=== PATIENT | male | born 1945 | race Caucasian/White ===

== ENCOUNTER 2018-08-28 15:56 | Inpatient (IN) | payer OTHER, BC ==
[~2018-08-28] VITALS: Ht 152.4 cm; Wt 86.3 kg
[2018-08-28 16:34] VITALS: BP 111/61
--- NOTE | 2018-08-28 18:42 | NUR ---
ASSUMED CARE OF PT AT APPROX 1615. PT ARRIVED ON UNIT VIA EMS TRANSPORT FROM [facility]. PT HAS A HX OF HEMMORAGHAIC STROKE (FELIX 2019) AND HAS IN BEEN SWITCHING BETWEEN VENT, BIPAP, AND NC SINCE THE EVENT. CODY AT [facility] REPORTED THAT THIS MORNING THE PT SPIKED A FEVER OF 101, HAD INCREASED BP OF 180/110, AND BECAME TACHYCARDIC IN THE 130s. THE FAMILY ALSO REPORTS THAT THE PATIENT HAS BEEN LESS ORIENTATED, UNABLE TO TRACK WITH EYES AND INCREASINGLY LETHARGIC, THE LAST DAY OR TWO.
[2018-08-28 20:07] LABS: PCO2 57.9 mmHg (35.0-45.0); PO2 128.2 mmHg (80.0-100.0); pH 7.435 (7.360-7.450); sO2 98.6 % (92.0-98.0)
[2018-08-28 20:16] VITALS: BP 96/41
[2018-08-29 00:07] LABS: HEMATOCRIT 26.6 % (42.0-52.0); HEMOGLOBIN 8.4 gm/dL (14.0-18.0); MCH 27.2 pg (26.0-34.0); MCHC 31.5 g/dL (28.0-37.0); MCV 86.2 fL (80.0-100.0); PLATELET COUNT 368 thou/uL (150-400); RBC 3.09 mil/uL (4.50-6.00); RDW 15.5 % (10.5-14.5); WBC 20.6 thou/uL (4.0-11.0)
[2018-08-29 00:19] VITALS: BP 132/65
[2018-08-29 00:28] LABS: ALBUMIN 1.5 g/dL (3.4-5.0); CALCIUM 8.8 mg/dL (8.5-10.1); CREATININE 0.6 mg/dL (0.7-1.3); POTASSIUM 3.3 mmol/L (3.5-5.1); TOTAL BILIRUBIN 0.2 mg/dL (<0.1-1.0); TOTAL PROTEIN 6.3 g/dL (6.4-8.2)
[2018-08-29 00:47] LABS: ABSOLUTE NEUTROPHILS 17.9 thou/uL (1.4-8.2); METAMYELOCYTES 1 %
[2018-08-29 00:48] LABS: ANISOCYTOSIS 1+; PLATELET ESTIMATE NORMAL; POIKILOCYTOSIS 1+
[2018-08-29] MEDS ORDERED: IPRAT-ALBUT 0.5-3 ML IH (01:28)
[2018-08-29] MEDS ORDERED: ASPIR 8181 MG PER TUBE (01:29)
[2018-08-29] MEDS ORDERED: ARTIFICIAL TEA1 EACH OPHTHALMIC (01:29)
[2018-08-29] MEDS ORDERED: LIORESAL 10 MG10 MG PER TUBE ×3 (01:30→01:44)
[2018-08-29] MEDS ORDERED: PERIDEX15 ML MUCOUS MEM (01:32)
[2018-08-29] MEDS ORDERED: CARDURA4 MG PER TUBE (01:34)
[2018-08-29] MEDS ORDERED: LASIX 20 MG TAB20 MG PER TUBE (01:35)
[2018-08-29] MEDS ORDERED: VIMPAT200 MG PER TUBE (01:35)
[2018-08-29] MEDS ORDERED: PREVACID30 MG PER TUBE (01:36)
[2018-08-29] MEDS ORDERED: KEPPRA1000 MG PER TUBE ×2 (01:38→01:40)
[2018-08-29] MEDS ORDERED: LISINOPRIL40 MG PER TUBE (01:40)
[2018-08-29] MEDS ORDERED: PROPRANOLOL 1010 MG PER TUBE (01:41)
[2018-08-29] MEDS ORDERED: VALPROIC A500 MG/10 PER TUBE (01:42)
[2018-08-29] MEDS ORDERED: DEXTROSE 50%-WA50 ML IV (01:48)
[2018-08-29] MEDS ORDERED: GLUCAGON EMERGEN1 MG INJECTION (01:49)
[2018-08-29] MEDS ORDERED: GLUCOSE GEL38 GM PO (01:50)
[2018-08-29] MEDS ORDERED: GLUCOSE4 GM PO (01:51)
[2018-08-29] MEDS ORDERED: ATIVAN0.5 MG PER TUBE (01:52)
[2018-08-29] MEDS ORDERED: PROPRANOLOL 1010 MG PO (01:54)
[2018-08-29 04:00] VITALS: BP 129/54
--- NOTE | 2018-08-29 04:39 | NUR ---
ASSUMED CARE OF PT. AT 1900. ADMISSIONS COMPLETED. PT. IS MORE ALERT THROUGHOUT THE SHIFT. WILL SOMETIMES TRACK AND CAN SQUEEZE HANDS AND WIGGLE TOES, BUT IS VERY WEAK. PT. DOES NOT LOOK IN PAIN. PT. AFEBRILE AND VSS. PT. TOLERATES TURNS, SUCTIONING, AND ORAL CARE. MEDICATIONS ORDERED PER DOCTOR REQUEST, TUBE FEEDINGS NOT STARTED, WILL PUT IN DIETARY CONSULT. AWAITING CT RESULTS. PT. IS PROGRESSING TOWARDS GOALS, WILL CONTINUE TO MONITOR.
[2018-08-29 08:25] VITALS: BP 115/61
--- NOTE | 2018-08-29 09:49 | NUR ---
RD recommends Vital AF 1.2 at goal rate of 65 ml/hr with 150 ml water flushes q 4 hrs
[2018-08-29 10:33] LABS: URINE BILIRUBIN NEGATIVE (Negative); URINE BLOOD 3+ (Negative); URINE CLARITY CLEAR; URINE COLOR YELLOW; URINE GLUCOSE-RANDOM* NEGATIVE (Negative); URINE KETONES TRACE (Negative); URINE PROTEIN (DIPSTICK) 1+ (Negative); URINE SPECIFIC GRAVITY 1.025 (1.005-1.035)
[2018-08-29 10:34] LABS: URINE LEUKOCYTES-REFLEX 1+ (Negative); URINE NITRITE-REFLEX POSITIVE (Negative)
[2018-08-29 10:50] LABS: BACTERIA-REFLEX >30 Many /HPF (None Seen); CASTS None Seen /LPF (None Seen); CRYSTALS None Seen /LPF (None Seen); SQUAMOUS 0-3 Few /LPF (0-3); URINE RBC 3-10 Few /HPF (0-2)
--- NOTE | 2018-08-29 11:04 | H ---
[facility] [place] [address] HISTORY AND PHYSICAL Name: YAA MANRIQUEZ Room #: 361-P ADM IN M.R.#: [id number] Admission: 08/28/18 ������������������ Attend Phys: Jody Brown Discharge: ������������������ Date of : 41 Report #: [id number] THIS REPORT FOR: //name// CC: Karl Alvarez DATE OF SERVICE: 08/28/2018 CHIEF COMPLAINT: Shortness of breath and fever. HISTORY OF PRESENT ILLNESS: The patient is a 72-year-old gentleman who was transferred from [facility] for evaluation of chronic respiratory failure and ventilator weaning possibility, and a recent fever. His history began in April of this year when he developed a subarachnoid hemorrhage felt to be due to AV malformation and hemorrhage, developed significant hydrocephalus. He underwent a craniotomy and subsequently developed respiratory failure and significant neurologic injury. Since that time, he has been confined to the ventilator with a tracheostomy tube and a PEG tube for feeding. His neurologic status really has not improved significantly and he has been bedbound and minimally responsive. After speaking to the LTAC facility, he has attempted ventilator weaning 3 times and failed due to hypoxia and poor airway clearance, felt to be related to his underlying poor neurologic status. In recent days or a week, he will mainly blink his eyes and briefly look around the room, but there is no two way interaction at this point. He also had a complication and belief of red man syndrome and a reaction to vancomycin, which has left him with significant erythema of the skin throughout. PAST MEDICAL HISTORY: Psoriasis and hypertension. PAST SURGICAL HISTORY: Tracheostomy, PEG tube, craniotomy, and IVC filter placement. FAMILY HISTORY: Unknown. SOCIAL HISTORY: Unknown. ALLERGIES: VANCOMYCIN and DILANTIN. MEDICATIONS: Albuterol, aspirin, baclofen, Cardura, Lasix, Vimpat, Keppra, Prinivil, omeprazole, propranolol, and Depakote. REVIEW OF SYSTEMS: He is unable to give review. OBJECTIVE: VITAL SIGNS: T-max was 38.1, currently at 36.8; pulse 76; respirations 20; and blood pressure 115/61. [facility] [address] [place] [address] HISTORY AND PHYSICAL Name: YAA MANRIQUEZ Room #: 361-P ADM IN M.R.#: [id number] Admission: 08/28/18 ������������������ Attend Phys: Jody Brown Discharge: ������������������ Date of : 43 Report #: [id number] GENERAL: He is asleep on the ventilator. He opens his eyes and blinks, but there is no purposeful interaction or tracking. HEAD AND NECK: Unremarkable. Trach in place. LUNGS: Clear anteriorly. HEART: Regular. ABDOMEN: Soft, normoactive bowel sounds. PEG tube in place. Guerra catheter in place. EXTREMITIES: He has rigidity in the arms, no edema. SKIN: He has a sort of a flat erythematous irritation with dry flaking skin throughout across the head, neck, chest, arms, lower legs. NEUROLOGIC: There are no purposeful movements in her actions. LABORATORY DATA: His white count was 20,000, hemoglobin 8.4. Potassium 3.3, otherwise chemistries unremarkable. Albumin 1.5. ABG noted. CT head shows postoperative changes, but no bleed or mass. ASSESSMENT: 1. Chronic hypoxic respiratory failure. 2. Ventilator dependence. 3. Tracheostomy dependent. 4. Fever. 5. Leukocytosis. 6. Severe protein-calorie malnutrition. 7. Anemia of chronic disease. 8. Hypertension. 9. IVC filter in place. 10. PEG tube in place. 11. Guerra catheter in place. 12. Subarachnoid hemorrhage with craniotomy in 04/2018. 13. 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 PLAN: At this point, he is admitted for medical evaluation to see if there is anything that we can treat, try to help him wean from the ventilator. From the neurologic standpoint, I do not believe there is anything we can do to improve his status. CT head shows no acute changes. I will ask for a Depakote level. I spoke with Dr. Tavares who tried discontinuing his anti-seizure medications and sent in his seizure and myoclonus resume so they were restarted. We will continue those for now. I will ask Neurology opinion, but I do not see if there is anything we can do in that regard. As far as recent fever that was documented 101 at the facility and 38.1 here Celsius, so we need to workup fever and treat with antibiotics. ID is consulted. I will ask Pulmonary to give second opinion on ventilator weaning attempts, but given his poor neurologic [address] [address] HISTORY AND PHYSICAL Name: YAA MANRIQUEZ Room #: 361-P ADM IN M.R.#: [id number] Admission: 08/28/18 ������������������ Attend Phys: Jody Brown Discharge: ������������������ Date of : 43 Report #: [id number] status. He may just need chronic ventilator care at this point and long-term care ventilator unit. ��������������������������������������������� <ELECTRONICALLY SIGNED> ���������������������������������������� By: Teto Alvarez MD ��������������������������������������������� 08/29/18 1104 [id number] [id number] Teto Alvarez MD /nt
--- NOTE | 2018-08-29 11:18 | NUR ---
met with at bedside. patient admits with fever, tachycardia. Patient admits from [facility]. He had a suarachoid hemorragekin April 2018 which caused resp failure. He is on vent, TF, eyes open. Sp with tenative plan to return to [facility]. reports they have attempted vent weaning. She reports they discussed [facility] which is not what she wants for patient. She reports from hospital stay she wants to take him home with care. She reports she has spoken with Edith at [facility] who has given her information regarding pvt dty at home. She is aware of home on vent with need for 24/7 care. Called and sp with Kymberly at [facility] who reports she would like for their [employer] to sp with regarding plan. Casemgt to followup with once discussion to determine if cont plan for home.
[2018-08-29 11:50] LABS: % SATURATION 8 % (20-39); IRON 15 ug/dL (65-175); TIBC 190 ug/dL (250-450)
[2018-08-29 12:11] VITALS: BP 121/56
--- NOTE | 2018-08-29 20:42 | NUR ---
Assumed care at 0700 this AM. Patient didn't follow commands today but would track with eyes and move extremities slightly on his own. O2 sats remained adequate today, but there was thick/mayberry sputum production all shift. IV antibiotics started. Tube feed started per orders today. Dietitian gave recommendation and Dr. Alvarez verbally approved the recommendation along with Q4H flushes. at bedside most of day and intermittently updated. Slow progress toward plan of care goals.
[2018-08-29 21:14] VITALS: BP 136/69
[2018-08-30 04:38] VITALS: BP 102/54
--- NOTE | 2018-08-30 05:11 | NUR ---
ASSUMED PT CARE AROUND 1900. NO VERBAL RESPONSE. WITHDRAWS TO PAINFUL STIMULI. O2 SATS STABLE ON VENT. ORAL CARE PROVIDED. WHOLE BODY RASH, DRY SKIN. CREAM APPLIED TO DRY SKIN. TF VIA PEG, TOLERATING WELL WITH MINIMAL RESIDUALS. Q2H TURN TO PREVENT FURTHER SKIN BREAKDOWN. VSS. RUBALCAVA TO DD. POSITIVE BLOOD CULTURE RESULTS CALLED TO DR ADITI PEÑA. FALL PRECAUTIONS IN PLACE. PT RESTED COMFORTABLY DURING THE NIGHT. NOT PROGRESSING WELL TOWARD POC GOALS. WILL CONTINUE TO MONITOR FURTHER.
[2018-08-30 05:49] LABS: HEMATOCRIT 27.7 % (42.0-52.0); HEMOGLOBIN 8.9 gm/dL (14.0-18.0); MCH 27.7 pg (26.0-34.0); MCHC 32.3 g/dL (28.0-37.0); MCV 85.8 fL (80.0-100.0); RBC 3.23 mil/uL (4.50-6.00); RDW 15.7 % (10.5-14.5); WBC 11.6 thou/uL (4.0-11.0)
[2018-08-30 05:59] LABS: CALCIUM 8.8 mg/dL (8.5-10.1); CREATININE 0.6 mg/dL (0.7-1.3); POTASSIUM 3.6 mmol/L (3.5-5.1)
[2018-08-30 07:55] VITALS: BP 95/44
[2018-08-30 11:45] VITALS: BP 97/53
--- NOTE | 2018-08-30 12:44 | HC ---
[facility] [place] [address] CONSULTATION Name: YAA MANRIQUEZ Room #: 361-P ADM IN M.R.#: [id number] Admission: 08/28/18 ������������������ Attend Phys: Jody Brown Discharge: ������������������ Date of : 43 Report #: [id number] THIS REPORT FOR: //name// CC: Karl Alvarez DATE OF SERVICE: 08/29/2018 INFECTIOUS DISEASE CONSULTATION REASON FOR CONSULTATION: I was asked to evaluate concerning fever in the setting of respiratory failure. HISTORY OF PRESENT ILLNESS: The patient is a 72-year-old known from his previous hospitalization at [facility]. 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 He underwent emergent craniotomy with extraventricular drain placement. He developed respiratory failure and has failed to wean from the ventilator since. In addition, he has had seizures, GI bleed from duodenal ulcer, DVT requiring an IVC filter, PEG tube placement. Had had a methicillin-susceptible Staph aureus pneumonia. He was treated with Dilantin for his seizures and developed a desquamating diffuse erythroderma. unclear whether it was due to Dilantin or vancomycin. He continues to have rash. On 07/14/2018, initially was weaned for a short period of time from the ventilator, ultimately was placed back on when he was diagnosed with metapneumovirus pseudomonas and Enterobacter pneumonia. He completed a prolonged course of IV antibiotic therapy. Last month, he finished Zosyn therapy and was off antibiotics for several weeks. Yesterday developed increased fever and respiratory compromise. He was readmitted at [facility] for further treatment. He has failed ventilatory weaning at [facility]. He has had no report of diarrhea. He has an indwelling Guerra catheter. He is receiving PEG tube feedings. Remains on FiO2 of 40%. No increased tracheal secretions. No change in his erythroderma. No new wounds. The patient unable to give any further details. He was placed on Zosyn following his transfer. Blood, urine, and sputum cultures have been obtained. ROS: 10 point review neg other than described above. PAST MEDICAL HISTORY: In addition to the above, he has psoriasis and hypertension. FAMILY HISTORY: Noncontributory. SOCIAL HISTORY: Noncontributory. [facility] [address] [place] [address] CONSULTATION Name: YAA MANRIQUEZ Room #: 361-P ADM IN M.R.#: [id number] Admission: 08/28/18 ������������������ Attend Phys: Jody Brown Discharge: ������������������ Date of : 43 Report #: [id number] ALLERGIES: DILANTIN, possibly VANCOMYCIN. MEDICATIONS: As noted on his APR, which were reviewed, now on zosyn. PHYSICAL EXAMINATION: VITAL SIGNS: Maximum temperature was 38 degrees, currently afebrile and hemodynamically stable. He had diffuse erythroderma with peeling skin. No other lesions noted. No palpable adenopathy. Eyes, without scleral icterus. Mouth without mucositis. Tracheostomy was unremarkable with no surrounding erythema or drainage. Neck was otherwise, supple. LUNGS: Coarse bilaterally, mostly in the bases. HEART: Regular, without murmur, gallop, or rub. ABDOMEN: Soft, did not appear tender and no hepatosplenomegaly or mass appreciated. PEG site was unremarkable with no drainage. External genitalia was edematous with no lesions or mass. He had indwelling Guerra catheter. RECTAL: Not performed. EXTREMITIES: With 1+ peripheral edema. He was able to move his extremities, but not to command. Unable to follow commands for cranial nerve evaluation. He was awake and able to follow with his eyes. LABORATORY STUDIES: Reviewed. Urinalysis with pyuria and bacteriuria. CT of the head with no acute change. Chest x-ray with bilateral infiltrates, mostly in the bases. IMPRESSION: 1. Febrile presentation with leukocytosis in the setting of respiratory failure and intracranial hemorrhage and acute neurologic injury. Considering pneumonia versus urinary tract infection is most likely cause of his decline. Oxygen requirements, however, have been stable. bacteremia from dermatitis concidered. 2. Diffuse erythroderma, underlying history of psoriasis and possible drug reaction. I would expect if Dilantin or vancomycin where the culprit, he would have cleared by now. 3. History of duodenal ulcer. 4. Deep venous thrombosis with IVC filter in place. 5. Seizure disorder. 6. Underlying chronic obstructive pulmonary disease. RECOMMENDATIONS: We will continue IV antibiotic therapy with Zosyn pending further culture results. We will follow his white count. Serial chest x-rays. [address] [address] CONSULTATION Name: YAA MANRIQUEZ Room #: 361-P ADM IN M.R.#: [id number] Admission: 08/28/18 ������������������ Attend Phys: Jody Brown Discharge: ������������������ Date of : 43 Report #: [id number] We will have Dermatology evaluate concerning persistent rash and any other treatment options. Neurologic evaluation to assist in prognosis and hopefully, be able to begin ventilatory weaning. Patient at risk for further complications. will continue care in cardiac monitoring unit for intensive therapy and observation. 60 min. ��������������������������������������������� <ELECTRONICALLY SIGNED> ���������������������������������������� By: Kee Tavares MD ��������������������������������������������� 08/30/18 1244 [id number] 0045 Kee Tavares MD /nt
--- NOTE | 2018-08-30 13:53 | HC ---
[facility] [place] [address] CONSULTATION Name: YAA MANRIQUEZ Room #: 361-P ADM IN M.R.#: [id number] Admission: 08/28/18 ������������������ Attend Phys: Jody Brown Discharge: ������������������ Date of : 43 Report #: [id number] THIS REPORT FOR: //name// CC: Karl Alvarez REFERRING PHYSICIAN: Dr. Teto Alvarez. REASON FOR REFERRAL: Weaning from the mechanical ventilator. HISTORY OF PRESENT ILLNESS: The patient is a 72-year-old gentleman who was admitted with dyspnea and fever. He has a history of chronic respiratory failure on ventilator. In 04/2018, the patient was admitted at for subarachnoid hemorrhage. The bleed was felt to be related to AV malformation. The patient also developed significant hydrocephalus. A craniotomy was performed. The patient has been on mechanical ventilation ever since the surgery. A tracheostomy was performed along with PEG tube. Neurologically, the patient developed seizure disorder, with weakness in all of his extremities. He was also on anticonvulsant therapy. The patient was then transferred [facility] where they specialize in neurologic patients on mechanical ventilation. According to the records, the patient was able to be weaned off the mechanical ventilation, Passy-Kinzers valve. He was placed on few liters of O2. He was doing fairly well where he developed pneumonia and was again placed on mechanical ventilation. Since then, the patient was transferred to [facility] for ongoing care and possible ventilator weaning. At [facility] the patient's weaning attempts at least 3 occasions failed due to hypoxia and poor clearance of airway secretions. Neurologically he remained same. The patient remains unable to move his extremities, opens his eyes. Recently, the patient developed febrile illness, for that reason he was transferred to the hospital for ongoing care. Family is also requesting whether the patient can be evaluated for ongoing weaning from the mechanical ventilation. PAST MEDICAL HISTORY: As mentioned above including hypertension, psoriasis. PAST SURGICAL HISTORY: As mentioned above including craniotomy, tracheostomy, PEG tube placement, IVC filter placement. ALLERGIES: VANCOMYCIN AND DILANTIN, REACTIONS NOT SPECIFIED. FAMILY HISTORY: Noncontributory. [facility] [address] [place] [address] CONSULTATION Name: YAA MANRIQUEZ Room #: 361-P [facility] IN M.R.#: [id number] Admission: 08/28/18 ������������������ Attend Phys: Jody Brown Discharge: ������������������ Date of : 43 Report #: [id number] SOCIAL HISTORY: No tobacco or alcohol use. He is . REVIEW OF SYSTEMS: Deferred as the patient is unable to provide answers. MEDICATIONS: Reviewed. He was on albuterol, aspirin, baclofen, Cardura, Lasix, Vimpat, Keppra, Prinivil, omeprazole, propranolol, Depakote. PHYSICAL EXAMINATION: GENERAL: His eyes are open, but does not follow commands. VITAL SIGNS: Temperature is 99 degrees Fahrenheit, temperature maximum was 106.0 degrees Fahrenheit, pulse is 84, respiratory rate is 20, blood pressure 120/56 mmHg, saturation 98%. HEENT: Normocephalic, atraumatic. NECK: Supple, without any lymphadenopathy or thyromegaly. Status post tracheostomy. CHEST: Breath sounds are fair. Coarse breath sounds in the bases. No wheezes. CARDIOVASCULAR: Normal S1, S2. There are no murmurs or gallop. There is no JVD and no carotid bruit. Pulses are 2+/4+ bilaterally. ABDOMEN: Soft, nontender, no organomegaly or masses felt. Status post PEG tube placement in the upper quadrant. GENITOURINARY: Deferred. RECTAL: Deferred. EXTREMITIES: No cyanosis or clubbing. MUSCULOSKELETAL: Shows [id number] muscle atrophy. NEUROLOGIC: The patient opens eyes, but does not move extremities. LABORATORY DATA: A CT head shows ventricular and sulcal prominence, likely chronic, old frontal craniotomy. Portable chest x-ray shows mild cardiomegaly, mild retrocardiac atelectasis, small left-sided pleural effusion, questionable right lower lobe infiltrates. Electrolytes unremarkable except for potassium 3.3. Liver enzymes are grossly unremarkable. WBC 20,600, hemoglobin 8.4, there is significant bandemia. Arterial blood gas revealed pH 7.45, pCO2 of 57, pO2 of 128 on FiO2 of 50%. IMPRESSION: 1. Bjdxo-kl-[id number] hypercapnic hypoxic respiratory failure in this 72-year-old white male with subarachnoid bleed due to arteriovenous malformation, status post craniotomy. He is febrile. He has leukocytosis and bandemia. His chest x-ray suggests possible right lower lobe infiltrates. Pneumonia is suspected. 2. Possible pneumonia. 3. Chronic hypercapnic respiratory insufficiency, likely related to hypoventilation due to central nervous system impairment. 4. Subarachnoid hemorrhage due to arteriovenous malformation, status post craniotomy with significant neurologic deficits as per Neurology. 5. Seizure disorder, on multiple seizure medications. 6. Recent hydrocephalus related to above. [facility] [address] [place] [address] CONSULTATION Name: YAA MANRIQUEZ Room #: 361-P ADM IN M.R.#: [id number] Admission: 08/28/18 ������������������ Attend Phys: Jody Brown Discharge: ������������������ Date of : 43 Report #: [id number] 7. Hypertension. 8. Psoriasis. 9. Status post IVC filter placement, status post trach, status post PEG tube placement. 10. 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 RECOMMENDATION: We will continue mechanical ventilation, will empirically treat for possible pneumonia with broad spectrum antibiotics to cover for nosocomial infections. In terms of weaning, I think the likelihood that the patient can be weaned off the ventilator is small given his neurologic impairment. Weaning trials will be attempted following treatment of his infections. The above was discussed in detail with the patient's . She voices understanding. Additional recommendation should include DVT and GI prophylaxis. Thank you for this consultation. Critical care time 1 hour. ��������������������������������������������� <ELECTRONICALLY SIGNED> ���������������������������������������� By: Kolton Cartagena MD ��������������������������������������������� 08/30/18 1353 [id number] Kolton Cartagena MD /nt
[2018-08-30 15:55] VITALS: BP 137/55
--- NOTE | 2018-08-30 18:08 | NUR ---
shift summery; Pt opened eyes when his name was called this morning and very lethargy until this afternoon. Pt was more alert to voice and more attentive to this nurse's activity at this time. Pt at RA and continuous pulse ox in place w/ 98% O2sat. Coarse LS. Trach #8 shiley, on Vent. TF running at 65ml. Skin very excorated, red. Wound care nurse followed.
[2018-08-30 19:35] VITALS: BP 114/57
[2018-08-31 04:10] VITALS: BP 104/60
[2018-08-31 04:24] LABS: HEMOGLOBIN 8.1 gm/dL (14.0-18.0); MCH 27.9 pg (26.0-34.0); MCHC 32.5 g/dL (28.0-37.0); MCV 85.8 fL (80.0-100.0); RBC 2.91 mil/uL (4.50-6.00); RDW 15.5 % (10.5-14.5)
[2018-08-31 04:32] LABS: CALCIUM 8.3 mg/dL (8.5-10.1); CREATININE 0.6 mg/dL (0.7-1.3); POTASSIUM 3.2 mmol/L (3.5-5.1)
--- NOTE | 2018-08-31 05:53 | NUR ---
FOLLOWING POC WITH IVF AND IVPB. Q2 TURNS AND ISOLATION PRECAUTIONS IN PLACE, PT PICC PORTS ARE VERY SLUGGISH. THE PURPLE BLUE TOP HAD ALTEPLASE FOR 2 HOURS WITH LITTLE SUCCESS. APPLIED TOPICAL MEDICATION TO PT SKIN AND ANTIFUNGAL TO SCROTUM AREA. RUBALCAVA IN PLACE. HOURLY ROUNDING.
[2018-08-31 07:40] VITALS: BP 117/59
[2018-08-31 11:51] VITALS: BP 137/86
--- NOTE | 2018-08-31 14:12 | NUR ---
VASCULAR ACCESS NURSE JENELLE- PATIENT ADMITTED 08/28 LATE IN THE EVENING WITH LUE DOUBLE LUMEN PICC FROM PRIOR FACILITY- XRAY SHOWING TIP IN UPPER SVC AND SOME COILING NOTED IN ARM. LINE FUNTIONAL AND DRESSING WAS CLEAN, DRY AND INTACT THE PRIOR FACILITY HAD CHANGED THE DRESSING 08/28 PRIOR TO DISCHARGE. 08/30 ADMIT BLOOD CULTURES NOTED TO HAVE GRAM NEGATIVE RODS. 08/31- STAFF REPORTED USING CATHFLO PM LINE WAS SLUGGISH AND CONTINUED TO BE DIFFICULT TO FLUSH AM AFTER 2 DOSES OF CATHFLO. SUSPECTING THE LINE WAS KINKING DUE TO THE COILING NOTED IN THE ARM ON XRAY THIS VASCULAR ACCESS NURSE 08/31 DECIDED TO WITHDRAW THE PICC 2CM TO ELIMINATE THE KINK IN THE PICC LINE. UPON REMOVAL OF THE DRESSING A YELLOW DISCHARGE WAS NOTED UNDER THE MEDICATED PATCH. DR. PEÑA NOTIFIED AND A ORDER WAS OBTAINED FROM STAFF FOR PICC LINE REPLACEMENT. STAFF NOTIFIED FAMILY FOR CONSENT AND VERIFIED NO CONTRINDICATIONS TO USING RIGHT EXTREMITY. AFTER A BEDSIDE TIMEOUT WAS COMPLETED A NEW DOUBLE LUMEN POWER PICC WAS PLACED PER HOSPITAL POLICY. LINE WAS TRIMMED TO 40CM AND ADVANCED WITHOUT DIFFICULTY. A STAT CHEST XRAY WAS OBTAINED TO VERIFY PLACEMENT.
--- NOTE | 2018-08-31 14:35 | HC ---
[facility] [place] [address] CONSULTATION Name: YAA MANRIQUEZ Room #: 361-P ADM IN M.R.#: [id number] Admission: 08/28/18 ������������������ Attend Phys: Jody Brown Discharge: ������������������ Date of : 41 Report #: [id number] THIS REPORT FOR: //name// CC: Karl Alvarez DATE OF SERVICE: 08/29/2018 HISTORY OF PRESENT ILLNESS: This is a 72-year-old male patient who was seen by me for the possibility of seizure. The patient is unable to provide any history. I talked to the patient's and reviewed the records in the computer. This patient was at [facility] with what looked like subarachnoid hemorrhage. This happened in April. 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 He underwent a craniotomy. He had a pretty protracted illness since that time. The records here indicated that he also developed significant hydrocephalus. He is not moving his extremities and according to the he was moving some. He did not follow command for me either. It looks like he initially had seizures. He was on three anticonvulsants at one time. Dilantin was discontinued for the possibility of a rash. He continued to be on a high dose of Keppra as well as therapeutic dose of Vimpat. does not believe that he had any further seizure. The record indicates that an attempt was made to discontinue his seizure medication, but his seizures came back. REVIEW OF SYSTEMS: A 14-point review of system was carried out and it was mainly positive for significant neurological problems since this happened. The indicated that somebody has mentioned that he can be on Depakote if further medication is needed. She did not think he was on Depakote, but the records indicate that his Depakote level is 34. So I suspect he must be on Depakote. PAST MEDICAL HISTORY: Positive for AV malformation and subarachnoid hemorrhage. FAMILY HISTORY: Noncontributory. SOCIAL HISTORY: He is . PHYSICAL EXAMINATION: The patient's examination indicate he opens his eye. He did not follow any commands for me and he did not move anything for me. He did not even move his eyes for me. His blood pressure is 121/56, respiration is 20, pulse is 84 and temperature is 99.1. LABORATORY DATA: His white count is 20.6. [facility] [address] [place] [address] CONSULTATION Name: YAA MANRIQUEZ Room #: 361-P [facility] IN M.R.#: [id number] Admission: 08/28/18 ������������������ Attend Phys: Jody Brown Discharge: ������������������ Date of : 41 Report #: [id number] IMPRESSION: 1. Subarachnoid hemorrhage. 2. AV malformation. 3. Profound neurological injury. 4. Hydrocephalus. I do not have his last CT scan for comparison. RECOMMENDATIONS: Presently, he is on Vimpat and Keppra. I do not know whether he is on Depakote or not. He probably is because his level is 34. He is on a very high dose of Keppra. I do not have the records from [facility]. I suspect his seizures will be very difficult to control to be put on such a high dose of Keppra. He is also on multiple anticonvulsants and that will indicate the same thing. I will get an EEG done. If EEG is okay then I think the best for the family is to take him back to [facility] and they are already trying to make an appointment for him. Although ultimately it is best to be only on one anticonvulsant, but if the patient has already been given a trial to decrease his anticonvulsant and he has not tolerated that and if his seizures were pretty refractory to control in the beginning then we may have to leave him on more than one anticonvulsant. Personally, I think the best will be that she discuss that with the when she has next appointment with them. Thank you very much for this referral. ��������������������������������������������� <ELECTRONICALLY SIGNED> ���������������������������������������� By: Albino Price MD ��������������������������������������������� 08/31/18 1435 [id number] 1314 Albino Price MD /nt
--- NOTE | 2018-08-31 14:36 | EEG ---
[facility] [place] [address] ELECTROENCEPHALOGRAM Name: YAA MANRIQUEZ Room #: 361-P ADM IN M.R.#: [id number] ������������������ Admission: 08/28/18 ������������������ Attend Phys: Karl Tavares, Discharge: ������������������ Date of : 41 Report #: [id number] ����������������������������������������������������������������� [id number] THIS REPORT FOR: //name// CC: Karl Alvarez This patient has a history of seizure after subarachnoid hemorrhage. EEG is being done for the possibility of seizure. The patient's EEG was done by placing the electrode by standard 10-20 system of electrode placement. Both referential and sequential montages were used for recording. EEG is very disorganized and poorly formed. The background activity is about 6 Hz and 30 microvolt, but it goes slower than that on multiple occasions. The patient appeared to be drowsy during part of the EEG and that is associated with bilateral slowing and vertex sharp waves. Photic stimulation was unremarkable. IMPRESSION: This is a severely abnormal EEG because it is disorganized and poorly formed. That is a nonspecific finding, which can occur with encephalopathy, effect of psychotropic medication, dementia, etc. No active epileptiform activity was noticed. ���������������������������������������� <ELECTRONICALLY SIGNED> ���������������������������������������� By: Albino Price MD ��������������������������������������������� 08/31/18 1436 1822 1842 Albino Price MD /nt
[2018-08-31 16:44] VITALS: BP 151/68
--- NOTE | 2018-08-31 18:21 | NUR ---
pt is cintinuing on vent CMV , Fio2 40%, vt 500, peep 5.0 , pt 's vs and o2sat are stable at this time, pt is toleraive tube feeding at 65ml/hr, pt is continuing iv abt and iv fluid, RN has called ID about left arm PICC line has yellow drainage, new order, D/C left arm picc line, new picc line replace at R arm, family has notifed about picc line replacement.
[2018-08-31 19:25] VITALS: BP 136/68
[2018-09-01 03:50] VITALS: BP 112/50
[2018-09-01 05:46] LABS: CALCIUM 8.5 mg/dL (8.5-10.1); CREATININE 0.5 mg/dL (0.7-1.3); POTASSIUM 3.6 mmol/L (3.5-5.1)
[2018-09-01 05:58] LABS: HEMATOCRIT 25.6 % (42.0-52.0); HEMOGLOBIN 8.3 gm/dL (14.0-18.0); MCH 28.2 pg (26.0-34.0); MCHC 32.5 g/dL (28.0-37.0); MCV 86.7 fL (80.0-100.0); RBC 2.96 mil/uL (4.50-6.00); RDW 15.4 % (10.5-14.5); WBC 9.5 thou/uL (4.0-11.0)
--- NOTE | 2018-09-01 07:17 | NUR ---
FOLLOWING POC WITH TUBE FEEDING, IVF/IVPB, AND Q2 TURNS. PT HAS HAD 4 BOWEL MOVEMENTS IN LAST 24 HOURS. PT IS MORE ALERT AND AWAKE AND TRACKING WITH HIS EYES. TRYING TO GET A RESPONSE TO QUESTIONS WITH BLINKS BUT NO GO SO FAR. VSS AND ELECTROLYTES IMPROVED SINCE YESTERDAY LABS. HOURLY ROUNDING.
[2018-09-01 08:10] VITALS: BP 126/56
[2018-09-01 11:14] VITALS: BP 125/60
[2018-09-01 14:48] VITALS: BP 134/75
--- NOTE | 2018-09-01 18:36 | NUR ---
SKIN FLAKING AND RED GENERALIZED//LOOKS MUCH BETTER PER SPOUSE..CREAMS APPLIED ORDERED..
[2018-09-01 19:40] VITALS: BP 144/73
[2018-09-02 03:45] LABS: HEMATOCRIT 25.5 % (42.0-52.0); HEMOGLOBIN 8.4 gm/dL (14.0-18.0); MCH 28.2 pg (26.0-34.0); MCHC 32.9 g/dL (28.0-37.0); MCV 85.7 fL (80.0-100.0); RBC 2.98 mil/uL (4.50-6.00); RDW 15.3 % (10.5-14.5); WBC 10.3 thou/uL (4.0-11.0)
[2018-09-02 05:21] VITALS: BP 69/44
--- NOTE | 2018-09-02 05:58 | NUR ---
FOLLOWING POC WITH IVPB ANTIBIOTICS AND Q2 TURNS. PT HAD 1X BOWEL INCONTINENCE. COMPLETE BED CHANGE COMPLETED WITH COMPLETE CARES WITH Z-GUARD AND ANTIFUNGAL FOR GERALDO AREA. PRATHO BOOTS AND LOW LOSS AIR PUMP IN PLACE. FALL PRECAUTIONS AND ISOLATION PRECAUTIONS BEING OBSERVED. HOURLY ROUNDING.
[2018-09-02 06:14] LABS: CALCIUM 8.4 mg/dL (8.5-10.1); CREATININE 0.5 mg/dL (0.7-1.3); POTASSIUM 3.8 mmol/L (3.5-5.1)
--- NOTE | 2018-09-02 08:03 | HC ---
[facility] [place] [address] CONSULTATION Name: YAA MANRIQUEZ Room #: 361-P ADM IN M.R.#: [id number] Admission: 08/28/18 ������������������ Attend Phys: Jody Brown Discharge: ������������������ Date of : 43 Report #: [id number] THIS REPORT FOR: //name// CC: Karl Alvarez DATE OF SERVICE: 08/30/2018 CHIEF COMPLAINT: Gluteal erythema. HISTORY OF PRESENT ILLNESS: This is a 72-year-old male patient admitted with shortness of breath and fever. He was at [facility] and transferred here for chronic respiratory failure possible ventilator weaning. He developed a subarachnoid hemorrhage in April of this year, likely due to an AV malformation. He developed significant hydrocephalus, underwent craniotomy and then developed respiratory failure and a significant neurological deficit. He has remained on a chronic ventilator with tracheostomy and PEG tube for feeding. 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 He is noted to have some breakdown and erythema of his gluteal region and groin, and I have been asked to see him with regard to wound care. He can provide no information about himself. PAST MEDICAL HISTORY: The patient's past medical history is positive for history of psoriasis and hypertension. He has had a tracheostomy, PEG tube, craniotomy and an IVC filter placement. FAMILY HISTORY: Unknown. SOCIAL HISTORY: Unknown. ALLERGIES: VANCOMYCIN AND DILANTIN. MEDICATIONS: Include albuterol, aspirin, baclofen, Cardura, Lasix, Vimpat, Keppra, Prinivil, omeprazole, propranolol and Depakote. REVIEW OF SYSTEMS: Unobtainable due to the patient's condition. He does make occasional eye contact, but is not able to indicate understanding or answer any questions. PHYSICAL EXAMINATION: VITAL SIGNS: The patient's vital signs at this time include temperature 37.1, pulse 71, respiratory rate 18 and blood pressure 97/53. GENERAL: This is a chronically ill-appearing male patient, who appears to be in no obvious distress. HEENT: Head is normocephalic. NECK: Demonstrates tracheostomy. Pupils are equal and reactive. [facility] [address] [place] [address] CONSULTATION Name: YAA MANRIQUEZ Room #: 361-P ADM IN M.R.#: [id number] Admission: 08/28/18 ������������������ Attend Phys: Jody Brown Discharge: ������������������ Date of : 41 Report #: [id number] LUNGS: Diminished. HEART: Regular. ABDOMEN: Soft, nontender. GENITOURINARY: Pelvic and gluteal region demonstrates general erythroderma across most of his body with scaly skin, but there is more pronounced redness in the gluteal region and in the skin folds of the groin area that may be consistent with some possible yeast dermatitis. EXTREMITIES: Without clubbing or cyanosis. Once again, erythroderma noted throughout. NEUROLOGIC: The patient does have some spontaneous movement and does open his eyes, not able to answer any questions. LABORATORY DATA: Sodium 144, potassium 3.6, chloride 103, CO2 of 35, BUN 20, creatinine 0.6 and glucose 124. White blood cell count 11.6 with a hemoglobin of 8.9. The MRSA screen is positive. CLINICAL IMPRESSION: 1. Chronic respiratory failure with tracheostomy and ventilator support. 2. History of subarachnoid hemorrhage. 3. Erythroderma. 4. History of psoriasis. 5. Yeast dermatitis. RECOMMENDATIONS: At this point in time, we will recommend low air loss mattress. We will order a low air loss pump for the bed. He will need q. 2 hour turning and positioning, PRAFO boots for pressure prophylaxis. We will recommend antifungal barrier cream to the sacral gluteal region and groin, active nutritional support and continuation of current medications. I appreciate being asked to see him in consultation. ��������������������������������������������� <ELECTRONICALLY SIGNED> ���������������������������������������� By: Hever Bhat MD ��������������������������������������������� 09/02/18 0803 1810 0054 Hever Bhat MD /nt
[2018-09-02 08:24] VITALS: BP 109/53
--- NOTE | 2018-09-02 09:27 | NUR ---
PT REMAINS VENT DEPENDENT..SATS 98-99% ON FIO2 40%..LUNGS CLEAR AND DIMINISHED..
--- NOTE | 2018-09-02 16:18 | NUR ---
LINDA reviewed chart. [facility] liaison onsite earlier today to obtain updates and spoke with pt's . Pt's is not wanting pt to return to [facility] or go to any LTAC. Pt's is hopeful that pt can wean off the vent here, then can go to a rehab/SNF. LINDA discussed with attending physician. LINDA will follow up with pt's tomorrow and is following to assist as needed with discharge planning.
[2018-09-02 20:09] VITALS: BP 134/72
[2018-09-03 04:30] VITALS: BP 125/68
--- NOTE | 2018-09-03 05:16 | NUR ---
PT REMAINS ON VENT PER TRACH 40% FIO2 WITH CONT PULSE OX. PT WITH TUBE FEED AT 65ML/HR WHICH IS GOAL. PT SR ON MONITOR. 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
[2018-09-03 08:13] VITALS: BP 129/71
[2018-09-03 12:03] VITALS: BP 138/75
[2018-09-03 16:15] VITALS: BP 129/69
--- NOTE | 2018-09-03 19:34 | NUR ---
shift summary: no progress. cpap trial for 40 minutes with rr-39-40, tv down to 200's, replaced on assist control. sr, tolerating tube feeding, had loose stool x 1, blair with adequate urine output. present at bedside, updated on changes in plan of care.
[2018-09-03 20:17] VITALS: BP 145/76
[2018-09-04 04:48] VITALS: BP 116/54
[2018-09-04 05:31] LABS: HEMATOCRIT 27.6 % (42.0-52.0); HEMOGLOBIN 8.7 gm/dL (14.0-18.0); MCH 27.3 pg (26.0-34.0); MCHC 31.7 g/dL (28.0-37.0); MCV 86.1 fL (80.0-100.0); RBC 3.21 mil/uL (4.50-6.00); RDW 15.6 % (10.5-14.5); WBC 12.7 thou/uL (4.0-11.0)
--- NOTE | 2018-09-04 05:35 | NUR ---
PT REMAINS ON VENT VIA TRACH AT 30% FIO2. PT HAD LOW GRADE FEVER 99.8 AX. PT CONTINUES WITH TUBE FEEDING AND TOLERATING. AM LABS DRAWN AND TO BE REVIEWED.
[2018-09-04 05:40] LABS: CALCIUM 8.7 mg/dL (8.5-10.1); CREATININE 0.5 mg/dL (0.7-1.3); POTASSIUM 4.2 mmol/L (3.5-5.1)
--- NOTE | 2018-09-04 08:00 | NUR ---
RECEIVED REPORT AND ASSUMED CARE, PATIENT ASSESSED AND LESS RESPONSIVE THIS AM.
[2018-09-04 08:04] VITALS: BP 139/67
[2018-09-04 11:48] VITALS: BP 139/69
--- NOTE | 2018-09-04 14:59 | NUR ---
LINDA reviewed chart and spoke with nursing. Pt to have EEG tomorrow. Pt remains on IV abx. Pt is alert but not able to follow commands. Vent weaning trials continued. LINDA left voice message for pt's , Tamara ([phone]) to discuss discharge plans. Pt admitted from [facility] is able to accept pt back to continue vent weaning. Awaiting call back from pt's . LINDA is following to assist as needed with discharge planning.
[2018-09-04 16:23] VITALS: BP 182/87
[2018-09-04 18:03] VITALS: BP 166/70
--- NOTE | 2018-09-04 18:45 | NUR ---
PATIENT NOT PROGRESSING HE WAS ONLY ABLE TO TOLERATE 5 MINS ON CPAP TODAY RESP RATE INCREASED TO THE 40'S. TOLERATING TUBE FEEDING WITH NO RESIDUALS. DIUREISED 5OO ML AFTER LASIX GIVEN. REASSURANCE GIVEN TO THE PATIENT AND HIS .
[2018-09-04 19:30] VITALS: BP 154/77
--- NOTE | 2018-09-05 03:23 | NUR ---
Patinet making slow progress towards outcome goals. Oxygenation optimal with current vent setting. Vital signs and rhythm stable. Neuro unchanged. Tolerating tube feedings. Turned to sides. Awake unable to communicate or track. Apperas comfortable.
[2018-09-05 05:13] VITALS: BP 159/82
[2018-09-05 06:14] LABS: HEMATOCRIT 27.3 % (42.0-52.0); HEMOGLOBIN 8.8 gm/dL (14.0-18.0); MCH 28.1 pg (26.0-34.0); MCHC 32.4 g/dL (28.0-37.0); MCV 86.7 fL (80.0-100.0); RBC 3.15 mil/uL (4.50-6.00); RDW 15.3 % (10.5-14.5); WBC 13.1 thou/uL (4.0-11.0)
[2018-09-05 06:31] LABS: CALCIUM 8.6 mg/dL (8.5-10.1); CREATININE 0.5 mg/dL (0.7-1.3); POTASSIUM 3.9 mmol/L (3.5-5.1)
[2018-09-05 08:03] VITALS: BP 138/72
[2018-09-05 11:38] VITALS: BP 136/67
--- NOTE | 2018-09-05 14:45 | NUR ---
SW reviewed chart and spoke with nursing and attending physician. Pt remains febrile and is on IV abx. Pt is on IV seizure medications. SW met with pt at bedside. Lengthy discussion with pt's regarding discharge plans. Pt's is hopeful that pt will be weaned off the vent while at [facility]. Pt has not been tolerating vent weaning trials. SW explained that LTACs are able to continue vent weaning and provide the medical care that pt needs at this time. Pt's states that her goal is for pt to go skilled at [facility] or [facility]. Pt has been to [facility] in [place] and [facility] in [place], [place]. Pt has been in hospital and medical facilities since April 19, 2018. Pt's states that she is aware that pt will exhaust his acute Medicare days. Pt's secondary is [employer] of . SW discussed alternate LTAC facilities in , as pt's states that she does not want pt to return to [facility]. Pt's has toured both [facility] and [facility]. Pt's is agreeable with referral to [facility]. LINDA explained that pt's Medicare days and secondary insurance will need to be checked. Pt's verbalized understanding. LINDA updated attending physician. program planner faxed face sheet to [facility] for insurance verification. LINDA notified [facility] liaison of new referral. Will fax clinical info once insurance has been verified. LINDA updated [facility] liaison. LINDA is following to assist as needed with discharge planning.
[2018-09-05 16:33] VITALS: BP 130/73
--- NOTE | 2018-09-05 17:32 | NUR ---
pt opens his eyes, but pt does not follw comands, pt is continuing IV ABT and ventlator ( CMV 02 30%, VT 500, PEEP 5) , PT 's vs and o2sat are stable at this time, pt needs help to change position and ADL, PT has very slowing to meet his care plan goals.
[2018-09-05 19:07] VITALS: BP 146/70
[2018-09-06 05:28] VITALS: BP 145/79
--- NOTE | 2018-09-06 07:41 | NUR ---
SLEPT MOST OF SHIFT. WORKING ON GOALS AND PLAN FOR NOC. NO CHANGES IN STATUS. TURNED FOR COMFORT AND SKIN CARE. CONTINUE TO ASSES. PROGRESSING TOWARDS GOALS FOR TRANSFER SLOWLY TO [facility].
[2018-09-06 07:55] VITALS: BP 135/68
--- NOTE | 2018-09-06 08:32 | NUR ---
DISCHARGE PLANNING. FACESHEET FAXED TO [facility] LIAISON FOR PROVIDER COVERAGE VERIFICATION. UNIT SW AWARE. FOLLOWING.
--- NOTE | 2018-09-06 11:55 | NUR ---
LINDA reviewed chart and spoke with nursing and attending physician. Pt continues on vent weaning trials. Pt is on IV abx. LINDA spoke with [facility] liaison, Archana, this morning. Archana to confirm that they accept pt's secondary insurance. Pt is currently using his Medicare [employer]. No weekend discharge planned. Complete referral to be faxed to [facility] if they accept pt's secondary insurance. LINDA is following to assist as needed with discharge planning.
--- NOTE | 2018-09-06 16:20 | NUR ---
WOUND CARE FOLLOW UP; ROUNDING WITH DR AVENDAÑO AND RADHA OPERATIONS CHIEF. THE SACRAL /BUTTOCKS ESCORIATION IS GREATLY IMPROVED USING ANTIFUNGAL BARRIER CREAM. RECOMMENDATION; CONTINUE CURRENT DISCUSSED WITH STAFF
[2018-09-06 16:36] VITALS: BP 126/70
[2018-09-06 19:30] VITALS: BP 151/77
--- NOTE | 2018-09-06 20:16 | NUR ---
PATIENT HAS RESTED QUIETLY AND CALMLY TODAY. HE OPENS HIS EYES AND TRACKS. ASSESSMENTS AND VITAL SIGNS DOCUMENTED. TRIALED ON CPAP TODAY, WENT 3 MINUTES. HE IS TOLERATING TUBE FEEDINGS. LASIX GIVEN PER MD ORDER AND OUTPUT DOCUMENTED. WOUND CARE PROVIDED ORDERED. HE WAS TURNED, BATHED, AND ORAL CARE GIVEN. REPORT GIVEN TO THE AIR AND WATER TESTER RN FOR CONTINUATION OF CARE.
[2018-09-07 07:37] VITALS: BP 122/66
[2018-09-07 11:48] VITALS: BP 115/58
[2018-09-07 15:46] VITALS: BP 136/66
--- NOTE | 2018-09-07 16:59 | NUR ---
TUBEFEEDING WITH NO RESIDUALS NOTED..FLUSHED Q4H WITH 150 ML WATER...WILL MONITOR
[2018-09-07 19:45] VITALS: BP 123/72
[2018-09-08 04:54] VITALS: BP 119/62
--- NOTE | 2018-09-08 07:20 | NUR ---
RECEIVED REPORT AND ASSUMED PATIENT CARE AT 1900. PATIENT LYING IN BED WITH SPOUSE AT BEDSIDE. PATIENT NOTED TO HAVE A TRACH AND ON THE VENTILATOR. PATIENT DID NOT FOLLOW COMMANDS AND ONLY WILL LOOK AT THIS RN WHEN SPOKEN TO. HOURLY ROUNDING COMPLETED AND ASSESSMENTS CHARTED. NO ACUTE EVENTS OCCURRED DURING THIS SHIFT AND VS REMAINED STABLE.
[2018-09-08 08:22] VITALS: BP 140/72
[2018-09-08 12:25] VITALS: BP 130/64
--- NOTE | 2018-09-08 16:06 | NUR ---
ASSUMED CARE OF PT AT 0700. PT NONVERBAL, MINIMALLY INTERVACTIVE, ABLE TO TRACK EYES. SKIN VERY DRY/FLAKEY. BACKSIDE ASSESSED BY WOUND CARE PHYSICIAN. CREAMS APPLIED PER ORDER. TUBE FEEDING INFUSING W/O PROBLEMS. MINIMAL RESIDUALS. TURNED Q2H AND PRN. SUCTIONED PRN. VITALS STABLE. WILL CONT TO MONITOR.
[2018-09-08 16:53] VITALS: BP 152/77
[2018-09-08 19:55] VITALS: BP 127/72
[2018-09-09 00:50] VITALS: BP 120/70
[2018-09-09 05:05] VITALS: BP 125/63
[2018-09-09 07:03] LABS: ABSOLUTE NEUTROPHILS 7.8 thou/uL (1.4-8.2); BASOPHILS 0.9 % (0.0-2.0); EOSINOPHILS 8.5 % (0.0-3.0); HEMATOCRIT 28.5 % (42.0-52.0); HEMOGLOBIN 9.3 gm/dL (14.0-18.0); LYMPHOCYTES 12.2 % (24.0-44.0); MCH 28.4 pg (26.0-34.0); MCHC 32.5 g/dL (28.0-37.0); MCV 87.2 fL (80.0-100.0); MONOCYTES 10.7 % (1.0-8.0); PLATELET COUNT 494 thou/uL (150-400); POLYS 67.7 % (36.0-66.0); RBC 3.26 mil/uL (4.50-6.00); WBC 11.6 thou/uL (4.0-11.0)
[2018-09-09 07:13] LABS: CALCIUM 9.1 mg/dL (8.5-10.1); CREATININE 0.4 mg/dL (0.7-1.3); POTASSIUM 4.1 mmol/L (3.5-5.1)
[2018-09-09 08:07] VITALS: BP 123/57
--- NOTE | 2018-09-09 08:25 | NUR ---
END OF SHIFT SUMMARY: Pt has remained stable overnight. Tolerating tube feeding well. Suctioning small amounts of thick yellow sputum about q 4 hours. Monitor sinus rhythm. O2 sat remains > 92% on current vent settings. Urine output adequate. No changes in skin integrity.
--- NOTE | 2018-09-09 10:14 | NUR ---
discharge planning: dp sent updates on patient to [facility] and let [facility] know to expect them.
[2018-09-09 11:50] VITALS: BP 130/73
[2018-09-09 16:36] VITALS: BP 113/59
--- NOTE | 2018-09-09 17:14 | NUR ---
SW reviewed chart and spoke with nursing and attending physician. Pt is progressing towards goals for discharge. SW discussed with [facility] liaison, who states they are able to accept pt once they receive guardianship ppwk from pt's . Pt's has been to court to become pt's legal guardian. Discharge to LTAC is anticipated in 1-2 days. LINDA is following to assist as needed with discharge planning.
[2018-09-09 19:57] VITALS: BP 146/83
[2018-09-09 20:26] LABS: BE(vivo) 3.1 mmol/L (-2 to +3); HCO3 28.4 mmol/L (22.0-26.0); PCO2 46.3 mmHg (35.0-45.0); PO2 78.3 mmHg (80.0-100.0); pH 7.405 (7.360-7.450); sO2 95.6 % (92.0-98.0)
--- NOTE | 2018-09-09 20:36 | NUR ---
Assumed care approx. 0700 this AM. 02 sats adequate per cont. pulse ox. Skin seen by Dr. Bhat and Hui this afternoon; they said it has improved much since admission. Patient's bottom remains red, but seems to be less excoriated. Psoriasis also seems to be improving. Urination out of blair was adequate with clear/yellow urine. Q4H flushes and tube feed administered at goal rate with no residuals. Fall precautions in place. Patient's updated at bedside with questions answered. Progressing toward plan of care goals.
[2018-09-10 04:20] VITALS: BP 126/71
--- NOTE | 2018-09-10 06:09 | NUR ---
FOLLOWING POC WITH IVPB AND TUBE FEEDINGS. PT HAS LOW LOSS PUMP ON BED DUE TO IMMOBILITY AND SKIN ISSUES ON COCCYX. ISOLATION PRECAUTIONS BEING FOLLOWED. HOURLY ROUNDING.
[2018-09-10 07:54] VITALS: BP 149/87
[2018-09-10 11:52] VITALS: BP 122/69
--- NOTE | 2018-09-10 16:53 | NUR ---
SW reviewed chart and spoke with nursing and attending physician. Pt is progressing towards goals for discharge to [facility]. [facility] can accept pt once they receive the guardianship ppwk or documentation from the sports attorney. network planner faxed updates to [facility] for review. SW left voice message for pt's to provide update and notify of anticipated discharge timeframe of 1-2 days. LINDA is following to assist as needed with discharge planning.
[2018-09-10 16:57] VITALS: BP 136/80
[2018-09-10 19:15] VITALS: BP 117/64
--- NOTE | 2018-09-10 20:01 | NUR ---
Assumed care approx. 0700 this AM. Patient remains on ventilator. O2 sats adequate all shift. Moderate, white/ thick sputum suctioned from trach. RT reported patient was weaned from vent for about 4 minutes until patient became too tachypneic. Tube feed at 65 mls/hr and Q4H water flushes continued. Skin continues to make improvements. Q2H turns; cream applied all over body per orders. Scrotal edema and upper extremity edema noted. Fall precautions in place. No visitors noted at bedside today. Progressing toward plan of care.
[2018-09-11 04:43] VITALS: BP 130/79
--- NOTE | 2018-09-11 05:14 | NUR ---
FOLLOWING POC WITH TUBE FEEDING AND IVPB. PT HAD ONE BM OVERNIGHT. COMPLETE BED CHANGE COMPLETED THEN. SCD'S AND PRATHO BOOTS IN PLACE. SUCTIONING PRN. PT IS NOW MOVING HIS ARMS SOME. PT DOES NOT LIKE TAKING HIS EYE DROPS. HOURLY ROUNDING.
[2018-09-11 07:24] LABS: HEMATOCRIT 28.7 % (42.0-52.0); HEMOGLOBIN 9.7 gm/dL (14.0-18.0); MCH 29.2 pg (26.0-34.0); MCV 86.1 fL (80.0-100.0); RBC 3.33 mil/uL (4.50-6.00); RDW 15.8 % (10.5-14.5); WBC 9.4 thou/uL (4.0-11.0)
[2018-09-11 07:31] VITALS: BP 124/67
[2018-09-11 07:36] LABS: CALCIUM 9.1 mg/dL (8.5-10.1); CREATININE 0.5 mg/dL (0.7-1.3); POTASSIUM 3.7 mmol/L (3.5-5.1)
[2018-09-11 12:09] VITALS: BP 130/69
--- NOTE | 2018-09-11 14:04 | NUR ---
SW reviewed chart and spoke with nursing and attending physician. Pt is progressing towards goals for discharge. Discharge to [facility] is anticipated in 1-2 days. LINDA met with pt and at bedside. Pt was alert and able to track movement with his eyes. Pt's states she has an appt with her compliance attorney tomorrow at 1300 to obtain the guardianship ppwk. LINDA updated Katerine at [facility]. LINDA is following to assist as needed with discharge planning.
--- NOTE | 2018-09-11 17:27 | NUR ---
Assumed care approx. at 0700 this AM. Patient on ventilator with adequate 02 sats. Scaly, excoriated skin improving... barrier cream and bed changes after incontinence completed. The patient recieved a full and partial bed bath today, a full bed change, and oral care. New bottle and new tubing of Vital AF tube feed administered. Q4H 150 ml flushes given per orders. Patient's updated and questions answered. Fall precautions in place. Patient progressing toward goals.
[2018-09-11 17:28] VITALS: BP 120/66
[2018-09-11 20:13] VITALS: BP 141/85
--- NOTE | 2018-09-11 22:55 | NUR ---
BOTH LUMENS ON PICC LINE WILL FLUSH, BUT NOT DRAW. GOT ALTEPASE RX AND PUT 1ML IN EACH LUMEN PORT AND LET SET FOR TWO HOURS. INTERVENTION WAS SUCCESSFUL AND BLOOD NOW DRAWS FROM BOTH PORTS. WILL CONTINUE TO ASSESS.
[2018-09-12 04:03] VITALS: BP 126/71
--- NOTE | 2018-09-12 05:50 | NUR ---
FOLLOWING POC WITH Q2 TURNS AND TUBE FEEDINGS. AT 0530 PT WAS NOTICED HAVE LARGE SIZE BULGE ON RIGHT SIDE OF NECK. CALLED RT AND RT SAID IT WAS POSSIBLE SUBQ EMPHYSEMA AND SHOULD CALL PULMONARY ON THE CASE. CALL WAS PLACED TO DR. AVELAR AND RECEIVED ORDERS FOR ABG AND PORT CHEST XR. AFTER RESULTS FOLLOW UP WITH DR. AVELAR OR INSURANCE EXECUTIVE PULMONARY PHYSICIAN. WILL CONTINUE TO MONITOR. VSS AND VENT ONLY SOUNDS OFF WHEN PT NEEDS TO BE SUCTIONED.
[2018-09-12 05:57] LABS: BE(vivo) 4.4 mmol/L (-2 to +3); HCO3 29.1 mmol/L (22.0-26.0); PCO2 43.8 mmHg (35.0-45.0); PO2 76.8 mmHg (80.0-100.0); sO2 95.7 % (92.0-98.0)
[2018-09-12 07:20] VITALS: BP 119/76
[2018-09-12] MEDS ORDERED: PROPRANOLOL 1010 MG PO (10:22)
[2018-09-12] MEDS ORDERED: ACETAMINOPHEN325 M1 PO (10:22)
[2018-09-12] MEDS ORDERED: AMANTADINE100 M1 PO (10:23)
[2018-09-12] MEDS ORDERED: TRIAMCINOLONE A80 G2 TOP (10:24)
[2018-09-12] MEDS ORDERED: KETOCONAZOLE15 GM TOP (10:24)
[2018-09-12 11:19] VITALS: BP 133/73
--- NOTE | 2018-09-12 14:29 | NUR ---
SW reviewed chart and spoke with nursing and attending physician. Pt is progressing towards goals for discharge. Discharge to [facility] is anticipated for tomorrow. Pt's to meet with her insurance attorney this afternoon. Guardianship ppwk has been finalized and will be brought to [facility] and/or sent to [facility]. [facility] liaison aware. LINDA is following to assist as needed with discharge planning.
--- NOTE | 2018-09-12 18:19 | NUR ---
PATIENT ASSESSMENTS DOCUMENTED. HE HAS BEEN TURNED AND ORAL CARE PROVIDED. PEG TUBE INTAKE AND BOWEL OUTPUT DOCUMENTED. PATIENT CONTINUES ON VENTILATOR, APPEARS TO BE TOLERATING VENT SETTINGS. HE OPENS HIS EYES SPONTANEIOUSLY. NO APPARENT PAIN NOTED. PLAN OF CARE IS TO CONTINUE TO MONITOR PATIENT OXYGENATION, STATUS, MONITOR TUBE FEEDING TOLERANCE, AND OUTPUT.
[2018-09-12 19:18] VITALS: BP 134/82
[2018-09-13 04:07] VITALS: BP 119/69
--- NOTE | 2018-09-13 05:49 | NUR ---
RESUMED CARE FOR PT THIS EVENING. PT SHOULD DC 09/13 TO [facility]. IVF AND IVPB HAVE BEEN STOPPED. FREQUENT SUCTIONING THROUGHOUT THE SHIFT. FOLLOWING POC WITH Q2 TURNS AND TUBE FEEDING AT 65ML/HR WITH 150ML WATER FLUSHES. HOURLY ROUNDING.
[2018-09-13 07:51] VITALS: BP 123/76
--- NOTE | 2018-09-13 11:21 | NUR ---
care of pt assumed this am @ ~0700. pt noted to be resting quietly and comfortably this am. pt noted to track w/ his eyes, w/ minimal ues movements, no movement noted to les. pt w/ trach to ventilator, no changes to vent today, confirmed w/ Arturo/rt. pt sx prn, noted thick yellow secretions, pt w/ a good productive cough. pt npo, receiving tube feedings to peg tube, no residuals, receiving free water every 4 hours. blair draining and functional w/ issues at this time. noc rn stated pt to dc today to [facility]. no family at bs at this time.
[2018-09-13 11:50] VITALS: BP 119/59
--- NOTE | 2018-09-13 15:06 | NUR ---
DISCHARGE NOTE: SW reviewed chart and spoke with nursing and attending physician. Pt is medically stable for dishcarge to [facility] today. SW discussed with [facility] liaison, who confirms they are able to accept pt today. community planner faxed discharge orders/summary to [facility] and notified pt's . Guardianship ppwk faxed to [facility]. Chart copy ordered. Nursing to call report. No additional SW needs identified at this time, but is available to assist should needs arise.
[2018-09-13 15:44] VITALS: BP 111/63
--- NOTE | 2018-09-18 08:41 | EEG ---
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 The EEG was done to evaluate for the possibility of seizure. The EEG was done by placing the electrode by standard 10-20 system of electrode placement. Both referential and sequential montages were used for recording. Background activity in this patient's EEG is about 7 Hz and 30 microvolt. This EEG is focally slow also. No active epileptiform activity was noticed. Photic stimulation is unremarkable. IMPRESSION: This is an abnormal EEG because of widespread slowing present that usually indicate diffuse insult to the brain; however, the finding is nonspecific. No active epileptiform activity was noticed. Thank you very much for this referral. ���������������������������������������� <ELECTRONICALLY SIGNED> ���������������������������������������� By: Albino Price MD ��������������������������������������������� 09/18/18 [id number] Albino Price MD /nt
== END 2018-09-13 19:43 | DRG 870 ==
LOC: 3W 15:56
PROVIDERS: Internal Medicine; Internal Medicine Pulmonary Disease; ADMIT Internal Medicine Geriatric Medicine
PROC: 5A1955Z Respiratory Ventilation, Greater than 96 Consecutive Hours (ICD-10-PCS; principal; 2018-08-28)
PROC: 02HV33Z Insertion of Infusion Device into Superior Vena Cava, Percutaneous Approach (ICD-10-PCS; 2018-08-31)
DX: A41.50 Gram-negative sepsis, unspecified (principal); J96.22 Acute and chronic respiratory failure with hypercapnia; E43 Unspecified severe protein-calorie malnutrition; I60.9 Nontraumatic subarachnoid hemorrhage, unspecified; J96.21 Acute and chronic respiratory failure with hypoxia; R53.2 Functional quadriplegia; J15.1 Pneumonia due to Pseudomonas; Q27.30 Arteriovenous malformation, site unspecified; G91.9 Hydrocephalus, unspecified; N39.0 Urinary tract infection, site not specified; G93.40 Encephalopathy, unspecified; J44.0 Chronic obstructive pulmonary disease with (acute) lower respiratory infection; Z99.11 Dependence on respirator [ventilator] status; L40.8 Other psoriasis; I10 Essential (primary) hypertension; G40.909 Epilepsy, unspecified, not intractable, without status epilepticus; L53.9 Erythematous condition, unspecified; B37.2 Candidiasis of skin and nail; D63.8 Anemia in other chronic diseases classified elsewhere; L89.159 Pressure ulcer of sacral region, unspecified stage; L89.329 Pressure ulcer of left buttock, unspecified stage; L89.319 Pressure ulcer of right buttock, unspecified stage; Z99.81 Dependence on supplemental oxygen; Z88.1 Allergy status to other antibiotic agents; Z95.828 Presence of other vascular implants and grafts; Z88.8 Allergy status to other drugs, medicaments and biological substances; Z79.82 Long term (current) use of aspirin; Z79.899 Other long term (current) drug therapy; Z86.718 Personal history of other venous thrombosis and embolism; Z93.0 Tracheostomy status; Z93.1 Gastrostomy status; Z68.37 Body mass index [BMI] 37.0-37.9, adult
CPT/HCPCS: 10879; 27000